=== PATIENT | male | born 1975 | race Caucasian/White ===

== ENCOUNTER → 2020-01-16 | Outpatient (CLI) | payer OTHER ==
[2015-08-19 10:48] VITALS: BP 145/89
--- NOTE | 2020-01-16 15:15 | RAD ---
EXAM: PELVIS 01/16/2020 12:00 AM CLINICAL INDICATION:Polyarthralgia. Bilateral lower back pain without sciatica COMPARISON:None TECHNIQUE:AP view of the pelvis FINDINGS:No acute fracture. Alignment is normal. There is mild bilateral hip joint space narrowing and acetabular osteophytes. Mild acetabular overcoverage bilaterally. The sacroiliac joints, lower lumbar spine, and pubic symphysis are normal. IMPRESSION:Mild degenerative joint disease of the hips and acetabular overcoverage, which can be seen with pincer-type femoral acetabular impingement. Electronically signed by: Jacey Hunter MD (01/16/2020 3:12 PM) [id number]
--- NOTE | 2020-01-16 15:18 | RAD ---
EXAM: HAND BILAT 3V 01/16/2020 12:00 AM CLINICAL INDICATION:Polyarthralgia COMPARISON:None TECHNIQUE:3 views of the right left hand FINDINGS: Left hand: No acute fracture. Alignment is normal. Joint spaces are maintained. There is a probable incidental cyst in the proximal scaphoid. Tiny cysts versus nonspecific erosion in the triquetrum. There are no other erosions or productive changes. Bone mineralization is normal and soft tissues normal. Right hand: No acute fracture. Alignment is normal. Joint spaces are maintained. There are no erosions or productive changes. Bone mineralization and soft tissue are normal. IMPRESSION: 1. Probable incidental cyst in the left scaphoid and small cyst versus tiny nonspecific erosion in the left triquetrum. Otherwise normal radiograph of the left hand. 2. Normal radiograph of the right hand. Electronically signed by: Jacey Hunter MD (01/16/2020 3:15 PM) [id number]
== END | disposition home or self-care (01) ==
LOC: RAD 12:51
PROVIDERS: ATTEND Internal Medicine Rheumatology
DX: M16.0 Bilateral primary osteoarthritis of hip (principal); M25.752 Osteophyte, left hip; M25.751 Osteophyte, right hip; M79.641 Pain in right hand; M79.642 Pain in left hand
CPT/HCPCS: 72170; 73130